=== PATIENT | female | born 1985 | race Caucasian/White ===

== ENCOUNTER 2019-02-14 15:31 | Inpatient (IN) | payer OTHER ==
[~2019-02-14] VITALS: Ht 160 cm; Wt 88.1 kg
[2019-02-14 15:47] VITALS: Ht 160 cm; Wt 88.1 kg
[2019-02-14] MEDS ORDERED: METHYLERGONOVINE 0.2 MG INJ IM PRN (16:00)
[2019-02-14] MEDS ORDERED: CARBOPROST 250 MCG INJ IM PRN (16:00)
[2019-02-14] MEDS ORDERED: MISOPROSTOL 200 MCG TAB PR PRN ×2 (16:00→21:00)
[2019-02-14] MEDS ORDERED: OXYTOCIN 30 UNITS/LR 500 ML IV PRN (16:00)
[2019-02-14] MEDS ORDERED: CEFAZOLIN 2 GM/50 ML (PMX) 50 ML IVPB SCH (16:00)
[2019-02-14 16:16] VITALS: BP 130/82; PULSE 74; RESP 20
[2019-02-14] MEDS ORDERED: PNV11TAB PO (16:20)
[2019-02-14] MEDS: LACTATED RINGER'S 1,000 ML IV SCH ×2 (16:21→17:16)
--- NOTE | 2019-02-14 17:06 | PREAC ---
Date/Time of Note Date/Time of Note DATE: 02/14/19 TIME: 17:04 Anesthesia Eval and Record Evaluation Time Pre-Procedure Interview DATE: 02/14/19 TIME: 17:04 Age 33 Sex female NPO: 8 hrs Preoperative diagnosis repeat c section Planned procedure cvsection , BTL Past Medical History Past Medical History: Includes Neuro: Other (left side neuralgia, trigeminal) Surgery & Anesthesia Issues No known issue Meds Anticoagulation: No Beta Pedro within 24 hr: No Reason Beta Pedro not given: Pt. not on B-Pedro Reported Medications [id number] ( 19) 1 Each Tablet, 1 TAB PO DAILY, TAB 02/14/19 Current Medications Lactated Ringer's 1,000 ml @ 125 mls/hr Q8H IV Last administered on 02/14/19at 16:21; Admin Dose 125 MLS/HR; Start 02/14/19 at 15:48 Cefazolin Sodium/ Dextrose 50 ml @ 100 mls/hr ONCE IVPB ; Start 02/14/19 at 16:00 Oxytocin/Lactated Ringer's 500 ml @ 0 mls/hr ONCE PRN IV .VAGINAL BLEEDING; Start 02/14/19 at 16:00 Methylergonovine Maleate (Methergine) 0.2 mg ONCE PRN IM .VAGINAL BLEEDING; Start 02/14/19 at 16:00 Carboprost Tromethamine (Hemabate) 250 mcg ONCE PRN IM .VAGINAL BLEEDING; Start 02/14/19 at 16:00 Misoprostol (Cytotec) 1,000 mcg ONCE PRN [place] .VAGINAL BLEEDING; Start 02/14/19 at 16:00 Meds reviewed: Yes Allergies Coded Allergies: No Known Allergy (Unverified , 11/07/16) Allergies Reviewed: Yes Labs/Studies Labs Reviewed: Reviewed by anesthesiologist Result Diagram: 02/14/19 1621 Laboratory Tests 02/14/19 16:21 test: Positive Studies: ECG (n/a), CXR (n/a) Pre-procedure Exam Last vitals Vital Signs Date Temp Pulse Resp B/P (MAP) Pulse Ox O2 O2 Flow FiO2 Time Delivery Rate 02/14/19 98.0 74 20 130/82 Room Air 16:16 (98) Airway: Adequate mouth opening Mallampati: Mallampati I Teeth: Normal Lung: Normal Heart: Normal ASA Physical Status ASA physical status: 2 Emergency: None Planned Anesthetic Neuraxial: Spinal Planned Pain Management Sub-arachniod narcotics Pre-operative Attestations Prior to commencing anesthesia and surgery, the patient was re-evaluated, there was verification of: *The patient's identity *The results of appropriate recent lab work and preoperative vital signs *The above evaluation not changing prior to induction *Anesthetic plan, risk benefits, alternative and complications discussed with patient/family; questions answered; patient/family understands, accepts and wishes to proceed. LETITIA FORTE MD Feb 14, 2019 17:06
[2019-02-14] MEDS ORDERED: CITRIC ACID/NA CITRATE 30 ML CUP ONE (17:44)
[2019-02-14] MEDS ORDERED: CITRIC ACID/NA CITRATE 30 ML CUP PO ONE (18:00)
[2019-02-14] MEDS ORDERED: ONDANSETRON 4 MG INJ ONE (19:36)
[2019-02-14] MEDS ORDERED: morphine SULFATE/PF (10 MG/10 ML) INJ ONE (19:36)
[2019-02-14] MEDS ORDERED: METOCLOPRAMIDE 10 MG INJ ONE (19:36)
[2019-02-14] MEDS ORDERED: KETOROLAC 30 MG INJ ONE ×2 (19:36→21:36)
--- NOTE | 2019-02-14 19:48 | HP ---
Date/Time of Note Date/Time of Note DATE: 02/14/19 TIME: 19:39 OB - History Hx of Present Free Text/Dictation 33 YO with IUP 39 weeks with EDC 02/21/2019 with history of previous delivery x 3, who desires to have repeat delivery and Permanent sterilization. I discussed with the patient the risks, benefits, indications, and alternatives of procedure including but not limited to risks of infection, bleeding, damage to other organs, bowel, bladder, hernia formation, scar formation, possibility of blood transfusion, possible need for emergency hysterectomy, as well as the fact that tubal ligation may fail and there is 1 to 2% risk of failure over lifetime of tubal ligations and the fact that tubal ligation is permanent and irreversible. She was allowed to ask questions. All her questions were answered. Informed consent has been obtained. Care: Good Care Ultrasounds: No ultrasounds Obstetrical Complications: None Medical Complications: None Past Family/Social History * Past Medical, Surgical, Family and Obstetric Histories reviewed from chart. OB Admission Exam Vital Signs Vital Signs Vital Signs Date Temp Pulse Resp B/P (MAP) Pulse Ox O2 O2 Flow FiO2 Time Delivery Rate 02/14/19 98.0 74 20 130/82 Room Air 16:16 (98) Physical Exam HEENT: WNL Heart: Rhythm Normal Lungs: Clear, Equal Abdomen: WNL Extremities: Normal Reflexes: Normal Last 72 hourBlood Glucose Bedside Glucose - 72 Hours Test 02/14/19 18:41 Bedside Glucose 73 mg/dL (70-220) Last 72 hours Lab Results CBC & BMP 02/14/19 16:20 02/14/19 16:21 Liver Function Test 02/14/19 16:20 Alanine Aminotransferase (ALT/SGPT) 18 Albumin 3.3 Alkaline Phosphatase 148 H Aspartate Amino Transf (AST/SGOT) 27 Direct Bilirubin 0.00 Total Protein 6.2 OB Assessment/Plan Other Assessment: Assessment: IUP 39 weeks h/o previous Desires repeat Desires permanent sterilization Other plan: Repeat Delivery Tubal ligation may be done by either salpingectomy or modified Charles BTL NORA BURTON MD Feb 14, 2019 19:48
[2019-02-14] MEDS ORDERED: FENTAnyl 50 MCG/ML VIAL ONE (20:26)
[2019-02-14] MEDS ORDERED: OXYTOCIN 30 UNITS/LR 500 ML IV ONE (20:48)
[2019-02-14] MEDS ORDERED: LACTATED RINGER'S 1,000 ML IV SCH (20:50)
--- NOTE | 2019-02-14 20:56 | OPR ---
Date/Time of Note Date/Time of Note DATE: 02/14/19 TIME: 20:52 Operative Report Procedure Date: Feb 14, 2019 Preoperative Diagnosis IUP at 39 weeks h/o delivery x 3 Desires permanent sterilization Postoperative Diagnosis Same 3 cm right ovarian cyst Operation/Procedure Performed Repeat delivery Bilateral distal salpingectomies Right ovarian cystectomy Surgeon see signature line Ic Design Engineer Dr. MS Edward Anesthesia Type: spinal Estimated Blood Loss: other (700) Transfusion none Specimen distal segments of bilateral tubes. right ovarian cyst Grafts/Implants none Tubes/Drains De La Paz Cath Complications none Pt Condition Post Procedure: stable Disposition: PACU Procedure Description The risks, benefits, indications, alternatives of procedure including, but not limited to risk of infection, bleeding, damage to other organs, bowel, bladder, hernia formation, scar formation, possibility of blood transfusions, the risks of tubal ligation such as failure and future pregnancies were discussed with the patient. The fact that BTL is permanent and irreversible also discussed with patient. She was allowed to ask questions. All her questions were answered. Informed consent was obtained. DESCRIPTION OF PROCEDURE: She was taken to the operating room. Spinal anesthesia was induced. She was prepped and draped in the usual sterile fashion. Surgical time out one. Anesthesia was tested to be adequate. With permission from anesthesiologist, a knife was used to make a Pfannenstiel skin incision. T he incision was taken down in layers. The fascia was cut, undermined and from the underlying muscle using sharp and blunt dissection. All the bleeders were cauterized. Peritoneum was entered bluntly. A low transverse incision was developed over the uterus. Amniotic fluid was clear and adequate. A viable infant in vertex presentation was delivered without any difficulty. The cord was clamped and cut, handed to awaiting team. Placenta was then delivered. Uterus was exteriorized, wrapped around a moist lap. Inside uterus was cleaned using a dry lap. All residual membranes were removed. The uterine incision was then closed using #1 Monocryl in 2 layers. A 5 cm distal end of the right tube was ligated 3 times using 0 plain tie and the ligated portion was cut, sent to pathology. Same procedure was done on the contralateral side. 3 cm right ovarian cyst noted and informed verbal consent obtained to remove the yst. the cyst ruptured during the dissection. cyst was from the ovary using sharp and blunt dissection and sent to pathology. The uterus was inserted back inside the abdominal cavity. Irrigation was done carefully. Careful evaluation of the uterine incision revealed no further bleeding. The tubal ligation sites were evaluated carefully. There was no bleeding. The peritoneum and rectus muscles and fascia were evaluated. All bleeders cauterized. Peritoneum was closed using 2-0 Monocryl. At this time, the count was correct. Rectus muscle was reapproximated using 2-0 Monocryl. Rectus fascia was closed using #1 Vicryl. Subcutaneous tissue was cleaned and irrigated. All bleeders cauterized and the skin closed using Insorb. All counts correct. NORA BURTON MD Feb 14, 2019 20:56
[2019-02-14] MEDS: SENNA/DOCUSATE NA (8.6MG/50MG) TAB PO SCH (21:00)
[2019-02-14] MEDS ORDERED: LANOLIN HPA 1 PKT TOP PRN (21:00)
[2019-02-14] MEDS ORDERED: NA PHOSPHATE/BIPHOS 133 ML ENEMA PR PRN (21:00)
[2019-02-14] MEDS ORDERED: OXYCODONE/ACETAMINOPHEN (5/325) TAB PO PRN ×2 (21:00)
[2019-02-14] MEDS ORDERED: KETOROLAC 30 MG INJ IV STA (21:34)
[2019-02-14] MEDS ORDERED: morphine (1 MG/ML) 10ML SYRINGE IV PRN ×3 (22:00)
[2019-02-14] MEDS ORDERED: DIPHENHYDRAMINE 50 MG INJ IV PRN ×2 (22:00)
[2019-02-14] MEDS ORDERED: NALOXONE (0.4 MG/ML) INJ IV PRN (22:00)
[2019-02-14] MEDS ORDERED: morphine 2 MG INJ IV PRN ×3 (22:00)
[2019-02-14] MEDS ORDERED: KETOROLAC 30 MG INJ IV PRN (22:00)
[2019-02-14] MEDS ORDERED: ONDANSETRON 4 MG INJ IV PRN ×2 (22:00)
--- NOTE | 2019-02-14 23:31 | PAC ---
Date/Time of Note Date/Time of Note DATE: 02/14/19 TIME: 23:31 Post-Anesthesia Notes Post-Anesthesia Note Last documented vital signs Vital Signs Date Temp Pulse Resp B/P (MAP) Pulse Ox O2 O2 Flow FiO2 Time Delivery Rate 02/14/19 98.0 74 20 130/82 Room Air 22:16 (98) Activity: WNL Respiratory function: WNL Cardiovascular function: WNL Mental status: Baseline Pain reasonably controlled: Yes Hydration appropriate: Yes Nausea/Vomiting absent: No LETITIA FORTE MD Feb 14, 2019 23:31
[2019-02-14 23:55] VITALS: BP 130/57; PULSE 63; RESP 18
[2019-02-15] MEDS: LACTATED RINGER'S 1,000 ML IV SCH ×3 (00:59→16:06)
[2019-02-15 03:15] VITALS: BP 118/59; PULSE 72; RESP 19
[2019-02-15] MEDS: KETOROLAC 30 MG INJ IV PRN ×2 (06:43→16:02)
[2019-02-15 07:33] VITALS: BP 120/65; PULSE 64; RESP 20
--- NOTE | 2019-02-15 07:44 | OPPN ---
Date/Time of Note Date/Time of Note DATE: 02/15/19 TIME: 07:43 Anesthesia Follow up Anesthesia Follow up Last documented vital signs Vital Signs Date Temp Pulse Resp B/P (MAP) Pulse Ox O2 O2 Flow FiO2 Time Delivery Rate 02/15/19 97.9 72 19 118/59 95 Room Air 03:15 (78) Respiratory function: WNL Cardiovascular function: WNL Comments a 33 YEAR FEMALE S/P SPINAL DURAMORPH pod#1 IS DOING WELL. PAIN IS CONTROLLED. nO N/V. ITCHING, HEADACHE, NEURAL DEFICIT. CARE PER SURGERY LETITIA FORTE MD Feb 15, 2019 07:44
[2019-02-15] MEDS: SENNA/DOCUSATE NA (8.6MG/50MG) TAB PO SCH ×2 (08:52→21:46)
[2019-02-15 12:00] VITALS: BP 131/64; PULSE 88; RESP 20
[2019-02-15 16:37] VITALS: BP 134/71; PULSE 86; RESP 20
--- NOTE | 2019-02-15 17:17 | QN ---
Documentation Comment s/p c/s Subjective: no complaint Objective: Afebrile, VSS NAD A&O Abdomen: soft, appropriate tender Incision: no sign of bleeding/infection mild lochia Extremity: 1+ edema bilaterally Assessment: S/p C/S + BTL + Cystectomy. POD # 1 Recovering Well Plan: current care NORA BURTON MD Feb 15, 2019 17:17
[2019-02-15 20:00] VITALS: BP 122/74; PULSE 66; RESP 17
[2019-02-15] MEDS: IBUPROFEN 600 MG TAB PO SCH (23:33)
[2019-02-16 04:00] VITALS: BP 120/71; PULSE 66; RESP 17
[2019-02-16] MEDS: LACTATED RINGER'S 1,000 ML IV SCH ×3 (05:58→23:48)
[2019-02-16] MEDS: IBUPROFEN 600 MG TAB PO SCH ×3 (05:58→17:46)
[2019-02-16 08:30] VITALS: BP 121/70; PULSE 75; RESP 18
[2019-02-16] MEDS: SENNA/DOCUSATE NA (8.6MG/50MG) TAB PO SCH ×2 (11:54→21:18)
[2019-02-16 15:42] VITALS: BP 130/78; PULSE 89; RESP 18
[2019-02-16 20:30] VITALS: BP 138/82; PULSE 64; RESP 19
[2019-02-17] MEDS: IBUPROFEN 600 MG TAB PO SCH ×3 (00:26→11:38)
[2019-02-17 04:00] VITALS: BP 140/64; PULSE 66; RESP 17
[2019-02-17 08:00] VITALS: BP 129/72; PULSE 68; RESP 18
[2019-02-17] MEDS: SENNA/DOCUSATE NA (8.6MG/50MG) TAB PO SCH (08:31)
[2019-02-17] MEDS ORDERED: DIPHTH/TET/ACEL PERTUSS (ADULT) 0.5 ML VIAL IM* ONE (09:00)
[2019-02-17] MEDS ORDERED: MEASLES,MUMPS,RUBELLA VACCINE INJ SC* ONE (09:00)
--- NOTE | 2019-02-17 09:05 | PD.PPDC ---
DIRECTOR SEMICONDUCTOR Discharge Instruction Condition [id number] Patient Condition: [id number] Good Diet Hhvdl8Hh Diet: Zjuqr8f Resume Regular Diet Activity/Restrictions [id number] Activity: Ddfpx3w Bedrest May be up to bathroom May be up for meals May Shower Geigt4Tn Restrictions: Jjzzq7y No Exercising No Lifting No Driving Minimize Walking Minimize Stair-climbing No Sexual Activity Nothing in the Vagina No [place] No Tampons, douche Wound/Drain Care Instructions [id number] Wound/Drain Care Tzzsa1g Remove Steri Strips in 2 Instructions: weeks Keep clean and dry Follow-up Follow-up with Physician: 2, Week/Weeks Return to clinic for Jmqny8Va PART TIME Instructions: Inppn0z Fever greater than 101 Chills Worsening abdominal pain Excessive Vaginal Bleeding Fzjrr7Es OB Instructions: Wozpc1w Breast Tenderness Depression Ltzop0Nj Surgical Instructions: Kvbjf2u Incisional Drainage Incisional Redness CHARI ASCENCIO MD Feb 17, 2019 09:05
[2019-02-17] MEDS ORDERED: HYDR-4011 PO (09:07)
[2019-02-17] MEDS ORDERED: IBUP-1542 PO (09:07)
--- NOTE | 2019-02-17 09:09 | DS ---
Date/Time of Note Date/Time of Note DATE: 02/17/19 TIME: 09:08 Obstetrical Discharge Record Final Diagnosis Final Diagnosis: Term delivered Section Section: Repeat Complications Gestational Diabetes (diet controlled) Augmentation: No Induction: No Condition on Discharge Physical Assessment Last Vitals: T=97.6 PREET 140/64 Voiding: Yes Bowel Movement: Yes Breast: Filling Fundus: Firm Abdomen and Incision: Clean, dry and intact Calf Tenderness: No Patient Condition: Good CHARI ASCENCIO MD Feb 17, 2019 09:09
--- NOTE | 2019-02-17 20:14 | QN ---
Documentation Comment This is a late entry note for 02/16/2019 Postop day #2 S/P R C/S and BTL Patient stable and afebrile Tolerating regular diet and ambulating and voiding without any difficulties, passing flatus Vital signs stable VS - Last 72 Hours, by Label Date Temp Pulse Resp B/P (MAP) Pulse Ox O2 O2 Flow FiO2 Time Delivery Rate 02/17/19 98.2 68 18 129/72 Room Air 08:00 (91) 02/17/19 97.6 66 17 140/64 Room Air 04:00 (89) 02/16/19 98.1 64 19 138/82 Room Air 20:30 (100) 02/16/19 98.3 89 18 130/78 Room Air 15:42 (95) 02/16/19 98.3 75 18 121/70 Room Air 08:30 (87) 02/16/19 98.2 66 17 120/71 Room Air 04:00 (87) 02/15/19 98.2 66 17 122/74 Room Air 20:00 (90) 02/15/19 98.8 86 20 134/71 97 16:37 (92) 02/15/19 98.2 88 20 131/64 97 12:00 (86) 02/15/19 97.5 64 20 120/65 97 Room Air 07:33 (83) 02/15/19 97.9 72 19 118/59 95 Room Air 03:15 (78) 02/14/19 98.7 63 18 130/57 98 Room Air 23:55 (81) Hematology - 72 Hrs Test 02/15/19 08:16 Hematocrit 37.3 % (37.0-47.0) Hemoglobin 12.4 g/dl (12.0-16.0) Mean Corpuscular Hemoglobin 30.5 pg (29.0-33.0) Mean Corpuscular Hemoglobin Concent 33.2 g/dl (32.0-37.0) Mean Corpuscular Volume 91.6 fl (82.0-101.0) Mean Platelet Volume 10.5 fl (7.4-10.4) H Platelet Count 248 10^3/UL (140-415) Red Blood Count 4.07 10^6/ul (4.20-5.40) L Red Cell Distribution Width 13.7 % (11.5-14.5) White Blood Count 15.0 10^3/ul (4.8-10.8) #H Abdomen soft, fundus firm Incision C/D/I Extremities nontender Assessment and plan; Patient stable and doing well Encouraged to ambulate Continue with routine postop care PÉREZ BROWNE MD Feb 17, 2019 20:14
--- NOTE | 2019-02-18 15:28 | DELSUM ---
Delivery Summary A-C Datetime Report Generated by CPN: 02/18/2019 15:28 DELIVERY PERSONNEL Cut Off Tender Glass: Gama Abdi MATERNAL INFORMATION Delivery Anesthesia: Spinal Medications in Delivery: See Anesthesia Notes Delivery QBL (ml): 600 Placenta Cultured: No Maternal Complications: Other Other Maternal Complications: GESTATIONAL DIABETIC DIET CONTROLLED RN Comments: TRUE KNOT IN UMBILICAL CORD LABOR SUMMARY EDC: 02/21/2019 00:00 No. Babies in Womb: 1 Attempted: No Labor Anesthesia: None LABOR INFORMATION Reason for Induction: Not Applicable Onset of Labor: NA Oxytocin: N/A Group B Beta Strep: Negative Antibiotics # of Doses: ANCEF 2G Antibiotics Time of Last Dose: 02/14/2019 19:44 Steroids Given: None Reason Steroids Not Administered: Not Applicable MEMBRANES Membranes Rupture Method: Artificial Rupture of Membranes: 02/14/2019 20:14 Length of Rupture (hr): 0.00 Amniotic Fluid Color: Clear Amniotic Fluid Amount: Copious Amniotic Fluid Odor: None STAGES OF LABOR Stage 3 hr: 0 Stage 3 min: 2 CSECTION DELIVERY Primary Indication: Repeat Elective Secondary Indication: Other Other Secondary Indication: BILATERAL TUBAL LIGATION CSection Urgency: Non Elective CSection Incidence: Repeat Labor: N/A Elective: Elective CSection Incision: Lower Uterine Transverse Sterilization Procedure: [place] BABY A INFORMATION Delivery Date/Time: 02/14/2019 20:14 Method of Delivery: Born in Route : No : N/A Forceps: N/A Vacuum Extraction: N/A Shoulder Dystocia : N/A SHOULDER DYSTOCIA BABY A Infant Delivery Date/Time: 02/14/2019 20:14 PRESENTATION/POSITION BABY A Presentation: Cephalic Cephalic Presentation: Vertex Vertex Position: Right Occipital Anterior Breech Presentation: N/A PLACENTA INFORMATION BABY A Placenta Delivery Time : 02/14/2019 20:16 Placenta Method of Delivery: Manual Removal Placenta Status: Delivered SCORES BABY A Heart Rate 1 min: >100 bpm Resp Effort 1 min: Good Cry Reflex Irritability 1 min: Cough/Sneeze/Pulls Away Muscle Tone 1 min: Active Motion Color 1 min: Blue/Pale Resuscitation Effort 1 min: Tactile Stimulation SCORE 1 MIN: 8 Heart Rate 5 min: >100 bpm Resp Effort 5 min: Good Cry Reflex Irritability 5 min: Cough/Sneeze/Pulls Away Muscle Tone 5 min: Active Motion Color 5 min: Body [place], Extremit Blue Resuscitation Effort 5 min: N/A SCORE 5 MIN: 9 INFANT INFORMATION BABY A Gestational Age at Delivery: 39.0 Gestational Status: Full Term- 39- 40.6 Weeks Infant Outcome : Liveborn Condition : Stable Infant Sex: Male IDENTIFICATION/MEDS BABY A ID Band Number: [id number] ID Band Location: Right Leg; Left Leg Sensor Applied: Yes Sensor Number: [id number] Sensor Location : Cord Clamp Vitamin K Given : Not Given Erythromycin Given: Not Given WEIGHT/LENGTH BABY A Birthweight (gm): 3870 Infant Weight (lb): 8 Infant Weight (oz): 9 Length (in): 20.00 Length (cm): 50.80 CORD INFORMATION BABY A No. Cord Vessels: 3 Nuchal Cord : N/A Nuchal Cord- Other: 0 True Knot: 1 Cord Blood Taken: Yes Banking/Donate Info: N/A Infant Suction: Mouth; Nose; Pharynx ASSESSMENT BABY A Infant Complications: Other Complications- Other: DELEE SUCTIONED 8 ML OF CLEAR FLUID Physical Findings at Delivery: Within Normal Limits Respirations: Appears Normal Chief Petroleum Engineer/ALS Called : Yes Care By: GONZALES MONET Transferred To: Remains with Mother
== END 2019-02-17 15:28 | disposition home or self-care (01) | DRG 785 ==
LOC: L-D 15:31 → PP1 23:57
PROVIDERS: ADMIT Specialist; ATTEND Specialist
PROC: 0UB70ZZ Excision of Bilateral Fallopian Tubes, Open Approach (ICD-10-PCS; 2019-02-14)
PROC: 0UB00ZZ Excision of Right Ovary, Open Approach (ICD-10-PCS; 2019-02-14)
PROC: 10D00Z1 Extraction of Products of Conception, Low, Open Approach (ICD-10-PCS; principal; 2019-02-14 18:00)
DX: O24.420 Gestational diabetes mellitus in childbirth, diet controlled (principal); O34.211 Maternal care for low transverse scar from previous cesarean delivery; O34.83 Maternal care for other abnormalities of pelvic organs, third trimester; N83.201 Unspecified ovarian cyst, right side; Z30.2 Encounter for sterilization; Z3A.39 39 weeks gestation of pregnancy; Z37.0 Single live birth
CPT/HCPCS: 80053; 81001; 82947; 82962; 84560; 85025; 85610; 85730; 86592; 86850; 86900; 86901; 87340; 88302; 88305; 90715; 99464; J1885; J2274; J2405; J2590; J2765; J3010; J7120